=== PATIENT | female | born 1960 | race Caucasian/White ===

== ENCOUNTER → 2017-02-27 | Outpatient (CLI) | payer BC ==
[~2017-02-27] MED LIST: COLLAGEN PO; FISH OIL PO; MAGNESIUM PO; METAMUCIL PO; NONE PER PT
[2017-02-27 11:36] LABS: BLOOD UREA NITROGEN 16 mg/dL (7-18)
[2017-02-27 11:40] LABS: ASPARTATE AMINO TRANSFERASE 23 U/L (15-37)
== END | disposition home or self-care (01) ==
LOC: STAR 09:46
PROVIDERS: ATTEND Urology
DX: Z01.818 Encounter for other preprocedural examination (principal); C67.9 Malignant neoplasm of bladder, unspecified
CPT/HCPCS: 36415; 80053; 81003; 85025; 87086; 93005